=== PATIENT | female | born 1980 | race Two or more races ===

== ENCOUNTER 2020-05-26 14:53 | Emergency (ER) | payer BC ==
[~2020-05-26] VITALS: Ht 165.1 cm; Wt 75.0 kg
[2020-05-26 16:26] LABS: PROTHROMBIN TIME PATIENT 12.9 SEC (11.7-14.0)
[2020-05-26 16:39] LABS: BILIRUBIN,URINE NEGATIVE (NEG); CLARITY,URINE CLOUDY; COLOR,URINE YELLOW; NITRITE,URINE NEGATIVE (NEG); PH,URINE 5.5 (<5.0-8.0); PROTEIN,URINE NEGATIVE (NEG-TRACE); UROBILINOGEN,URINE 0.2 mg/dL (0.2 mg/dL)
[2020-05-26 16:48] LABS: BACTERIA,URINE MANY /HPF (0-FEW); RBC,URINE OCC /HPF (0-2); SQUAMOUS EPITHELIAL CELL,UR MANY /LPF
[2020-05-26 16:48] LABS: CREATINE KINASE 63 U/L (26-192)
--- NOTE | 2020-05-26 16:58 | RAD ---
CHEST AP ONLY History: Reason: PUI, CHEST PAINS / Spl. Instructions: / History: Comparison: None. Findings: No consolidation or pleural effusion. Normal heart size. No pneumothorax. Impression: 1. No acute cardiopulmonary process. Electronically signed by: Carlos Ramirez DO (05/26/2020 4:56 PM) [facility] [place]
[2020-05-26 20:02] LABS: BASO # 0.1 x10^3/uL (0.0-0.2); BASO % 1 % (0-3); EOS # 0.1 x10^3/uL (0.0-0.7); EOS % 2 % (0-3); HEMOGLOBIN 13.2 g/dL (12.0-15.5); LYMPH # 2.2 x10^3/uL (1.0-4.8); LYMPH % 24 % (24-48); MEAN CORPUSCULAR HEMOGLOBIN 30 pg (25-35); MEAN CORPUSCULAR HGB CONC 34 g/dL (31-37); MEAN CORPUSCULAR VOLUME 88 fL (79-100); MONO # 0.5 x10^3/uL (0.0-1.1); MONO % 6 % (0-9); NEUT # 6.1 x10^3/uL (1.8-7.7); NEUT % 68 % (31-73); PLATELET COUNT 252 x10^3/uL (140-400); RED BLOOD COUNT 4.45 x10^6/uL (3.50-5.40); RED CELL DISTRIBUTION WIDTH 13.3 % (11.5-14.5)
[2020-05-26 20:13] LABS: CALCIUM 8.8 mg/dL (8.5-10.1); CREATININE 0.9 mg/dL (0.6-1.0); GFR 70.5; POTASSIUM 3.4 mmol/L (3.5-5.1)
[2020-05-26 20:19] LABS: ALBUMIN 3.5 g/dL (3.4-5.0); ALBUMIN/GLOBULIN RATIO 0.9 (1.0-1.7); TOTAL BILIRUBIN 0.3 mg/dL (0.2-1.0); TOTAL PROTEIN 7.4 g/dL (6.4-8.2)
[2020-05-26] MEDS ORDERED: IOHEXOL 300 MG/ML 100ML VIAL. IV ONE (20:30)
[2020-05-26] MEDS ORDERED: CONTRAST GIVEN. MC PRN (20:45)
--- NOTE | 2020-05-26 21:37 | RAD ---
EXAM: CT Abdomen and Pelvis with IV contrast CLINICAL HISTORY: Reason: LOW ABDOMEN PAIN / Spl. Instructions: [id number] 75ML / History: . COMPARISON: none TECHNIQUE: Helical CT of the abdomen and pelvis was performed following the administration of IV contrast. Axial, coronal and sagittal reformatted images were generated. ---PQRS compliance statement - One or more of the following individualized dose reduction techniques were utilized for this study: 1. Automated exposure control 2. Adjustment of the mA and/or kV according to patient size 3. Use of iterative reconstruction technique--- FINDINGS: Lower chest: Mild dependent opacities in the lower lobes of the lungs represent atelectasis, although developing atypical infectious or inflammatory process is not excluded. Abdomen and pelvis: Liver and biliary system: Focal low-attenuation along the falciform ligament likely focal fatty infiltration. Gallbladder is normal. No biliary ductal dilatation. Spleen: Unremarkable Pancreas: Unremarkable Adrenal glands: Unremarkable Kidneys: Symmetric nephrograms. No focal renal lesion. No hydronephrosis. No hydroureter. Lymph nodes/retroperitoneum: No abdominal or pelvic lymphadenopathy. Vessels: Aorta is normal in caliber. Bowel/Peritoneal cavity: Moderate colonic stool content is seen. No small or large bowel dilatation. No bowel obstruction. Appendix is normal. No abdominal or pelvic ascites. Abdominal wall: Small fat-containing periumbilical hernia is seen. Bladder: Only partially distended but otherwise unremarkable. Bones: No aggressive osseous lesion is seen. IMPRESSION: 1. Moderate colonic stool content. No bowel obstruction. 2. Appendix is normal. 3. Gallbladder is normal. No biliary ductal dilatation. 4. Partially distended bladder is unremarkable. Electronically signed by: Jose Wallace MD (05/26/2020 9:34 PM) [facility]
[2020-05-26] MEDS ORDERED: IV NORMAL SALINE 1000ML BAG 1,000 ML IV ONE (21:45)
[2020-05-26] MEDS ORDERED: KETOROLAC 30 MG/ML VIAL. IVP ONE (21:45)
[2020-05-26] MEDS ORDERED: fentaNYL PF VIAL 100 MCG/2 ML VIAL IVP ONE (21:45)
--- NOTE | 2020-05-26 22:41 | PHYS DOC ---
Past Medical History Past Medical History: TB Additional Past Medical Histor: TB 2016 COMPLETED TREATMENT Past Surgical History: No Surgical History Smoking Status: Never Smoker Alcohol Use: Occasionally General Adult EDM: Chief Complaint: COUGH HPI: HPI: Patient is a 39 year old low abdomen pain for the past 15 days. Patient speaks Bengali, facility perfume compounder service used for HPI. Patient states that she has had a cough with shortness of breath chest pain abdominal pain. Patient denies any vaginal discharge, patient denies any urinary problems, patient denies any STI concerns. Patient states that she had a normal bowel movement yesterday. Patient is not concerned for constipation. Patient denies any fever or chills at home, although she fears that she has a COVID 19 virus and would like to be tested today. Patient states that she and her family were tested 2 weeks ago and it was negative. Patient also states that she has nasal congestion. Patient denies any visual changes. Patient denies any back pain or pain in her joints or skin rashes. Denies any swelling of her glands. Denies depression or anxiety. Review of Systems: Review of Systems: Constitutional: Denies fever or chills. Eyes: Denies change in visual acuity. HENT: Complains of nasal congestion denies sore throat Respiratory: Complains of a cough with shortness of breath. Cardiovascular: Complains of generalized chest pain, denies swelling of her extremities GI: Denies abdominal pain, denies nausea vomiting diarrhea or constipation. : Denies dysuria. Denies vaginal discharge, denies STI concerns. Musculoskeletal: Denies back pain or joint pain. Integument: Denies rash. Neurologic: Denies headache, focal weakness or sensory changes. Lymphatic: Denies swollen glands. Psychiatric: Denies depression or anxiety. Heart Score: HEART Score for Chest Pain: HEART Score for Chest Pain Response (Comments) Value History Slighlty/Non-Suspicious 0 ECG Normal 0 Age < 45 0 Risk Factors No Risk Factors 0 Troponin < Normal Limit 0 Total 0 Risk Factors: Risk Factors: DM, Current or recent (<one month) smoker, HTN, HLP, family history of CAD, obesity. Risk Scores: Score 0 - 3: 2.5% MACE over next 6 weeks - Discharge Home Score 4 - 6: 20.3% MACE over next 6 weeks - Admit for Clinical Observation Score 7 - 10: 72.7% MACE over next 6 weeks - Early Invasive Strategies Current Medications: Current Medications Medications (Trade) Dose Ordered Sig/Lynnette Start Time Stop Time Status Last Admin Dose Admin Fentanyl Citrate (Fentanyl 2ml Vial) 50 mcg 1X ONCE 05/26/20 21:45 05/26/20 21:46 DC 05/26/20 22:07 50 MCG Info (CONTRAST GIVEN -- Rx MONITORING) 1 each PRN DAILY PRN 05/26/20 20:45 05/28/20 20:44 Iohexol (Omnipaque 300 Mg/ml) 75 ml 1X ONCE 05/26/20 20:30 05/26/20 20:33 DC 05/26/20 20:30 75 ML Ketorolac Tromethamine (Toradol 30mg Vial) 30 mg 1X ONCE 05/26/20 21:45 05/26/20 21:46 DC 05/26/20 22:07 30 MG Sodium Chloride 1,000 ml @ 1,000 mls/hr 1X ONCE 05/26/20 21:45 05/26/20 22:44 05/26/20 22:08 1,000 MLS/HR Allergies: Allergies: Allergies Coded Allergies Type Severity Reaction Last Updated Verified No Known Drug Allergies 05/26/20 No Physical Exam: PE: Constitutional: Well developed, well nourished, no acute distress, non-toxic appearance. [] HENT: Normocephalic, atraumatic, bilateral external ears normal, oropharynx moist, no oral exudates, nose normal. [] Eyes: PERRLA, EOMI, conjunctiva normal, no discharge. [] Neck: Normal range of motion, no tenderness, supple, no stridor. [] Cardiovascular:Heart rate regular rhythm, no murmur [] Lungs & Thorax: Bilateral breath sounds clear to auscultation [] Abdomen: Bowel sounds normal, soft, no tenderness, no masses, no pulsatile masses. [] Skin: Warm, dry, no erythema, no rash. [] Back: No tenderness, no CVA tenderness. [] Extremities: No tenderness, no cyanosis, no clubbing, ROM intact, no edema. [] Neurologic: Alert and oriented X 3, normal motor function, normal sensory function, no focal deficits noted. [] Psychologic: Affect normal, judgement normal, mood normal. [] Current Patient Data: Labs: Laboratory Tests Test 05/26/20 15:55 05/26/20 16:30 05/26/20 16:35 White Blood Count 9.0 x10^3/uL (4.0-11.0) Red Blood Count 4.45 x10^6/uL (3.50-5.40) Hemoglobin 13.2 g/dL (12.0-15.5) Hematocrit 39.0 % (36.0-47.0) Mean Corpuscular Volume 88 fL (79-100) Mean Corpuscular Hemoglobin 30 pg (25-35) Mean Corpuscular Hemoglobin Concent 34 g/dL (31-37) Red Cell Distribution Width 13.3 % (11.5-14.5) Platelet Count 252 x10^3/uL (140-400) Neutrophils (%) (Auto) 68 % (31-73) Lymphocytes (%) (Auto) 24 % (24-48) Monocytes (%) (Auto) 6 % (0-9) Eosinophils (%) (Auto) 2 % (0-3) Basophils (%) (Auto) 1 % (0-3) Neutrophils # (Auto) 6.1 x10^3/uL (1.8-7.7) Lymphocytes # (Auto) 2.2 x10^3/uL (1.0-4.8) Monocytes # (Auto) 0.5 x10^3/uL (0.0-1.1) Eosinophils # (Auto) 0.1 x10^3/uL (0.0-0.7) Basophils # (Auto) 0.1 x10^3/uL (0.0-0.2) Prothrombin Time 12.9 SEC (11.7-14.0) Prothrombin Time INR 1.0 (0.8-1.1) Activated Partial Thromboplast Time 28 SEC (24-38) Sodium Level 140 mmol/L (136-145) Potassium Level 3.4 mmol/L (3.5-5.1) L Chloride Level 105 mmol/L (98-107) Carbon Dioxide Level 27 mmol/L (21-32) Anion Gap 8 (6-14) Blood Urea Nitrogen 8 mg/dL (7-20) Creatinine 0.9 mg/dL (0.6-1.0) Estimated GFR (Cockcroft-Gault) 70.5 BUN/Creatinine Ratio 9 (6-20) Glucose Level 114 mg/dL (70-99) H Calcium Level 8.8 mg/dL (8.5-10.1) Magnesium Level 2.1 mg/dL (1.8-2.4) Total Bilirubin 0.3 mg/dL (0.2-1.0) Aspartate Amino Transferase (AST) 20 U/L (15-37) Alanine Aminotransferase (ALT) 27 U/L (14-59) Alkaline Phosphatase 85 U/L (46-116) Creatine Kinase 63 U/L (26-192) Creatine Kinase MB (Mass) < 5.0 ng/mL (0.0-3.6) H Creatine Kinase MB Relative Index % (0-4) Troponin I Quantitative < 0.017 ng/mL (0.000-0.055) Total Protein 7.4 g/dL (6.4-8.2) Albumin 3.5 g/dL (3.4-5.0) Albumin/Globulin Ratio 0.9 (1.0-1.7) L Urine Collection Type Unknown Urine Color Yellow Urine Clarity Cloudy Urine pH 5.5 (<5.0-8.0) Urine Specific Adrian 1.025 (1.000-1.030) Urine Protein Negative mg/dL (NEG-TRACE) Urine Glucose (UA) Negative mg/dL (NEG) Urine Ketones (Stick) Negative mg/dL (NEG) Urine Blood Negative (NEG) Urine Nitrite Negative (NEG) Urine Bilirubin Negative (NEG) Urine Urobilinogen Dipstick 0.2 mg/dL (0.2 mg/dL) Urine Leukocyte Esterase Negative (NEG) Urine RBC Occ /HPF (0-2) Urine WBC 1-4 /HPF (0-4) Urine Squamous Epithelial Cells Many /LPF Urine Bacteria Many /HPF (0-FEW) Urine Mucus Marked /LPF POC Urine HCG, Qualitative Hcg negative (Negative) Laboratory Tests 05/26/20 15:55 Laboratory Tests 05/26/20 15:55 Vital Signs: Vital Signs Date Time Temp Pulse Resp B/P (MAP) Pulse Ox O2 Delivery O2 Flow Rate FiO2 05/26/20 22:07 100 05/26/20 18:00 90 Room Air 05/26/20 16:00 112/72 (85) 05/26/20 15:24 98.8 18 98.8 EKG: EKG: EKG performed at 1708 showsnormal sinus rhythm without ectopy, reviewed by ED attending Dr. Bo, no STEMI noted no ACS concerns. [] Radiology/Procedures: Radiology/Procedures: EXAM: CT Abdomen and Pelvis with IV contrast CLINICAL HISTORY: Reason: LOW ABDOMEN PAIN / Spl. Instructions: [id number] 75ML / History: . COMPARISON: none TECHNIQUE: Helical CT of the abdomen and pelvis was performed following the administration of IV contrast. Axial, coronal and sagittal reformatted images were generated. ---PQRS compliance statement - One or more of the following individualized dose reduction techniques were utilized for this study: 1. Automated exposure control 2. Adjustment of the mA and/or kV according to patient size 3. Use of iterative reconstruction technique--- FINDINGS: Lower chest: Mild dependent opacities in the lower lobes of the lungs represent atelectasis, although developing atypical infectious or inflammatory process is not excluded. Abdomen and pelvis: Liver and biliary system: Focal low-attenuation along the falciform ligament likely focal fatty infiltration. Gallbladder is normal. No biliary ductal dilatation. Spleen: Unremarkable Pancreas: Unremarkable Adrenal glands: Unremarkable Kidneys: Symmetric nephrograms. No focal renal lesion. No hydronephrosis. No hydroureter. Lymph nodes/retroperitoneum: No abdominal or pelvic lymphadenopathy. Vessels: Aorta is normal in caliber. Bowel/Peritoneal cavity: Moderate colonic stool content is seen. No small or large bowel dilatation. No bowel obstruction. Appendix is normal. No abdominal or pelvic ascites. Abdominal wall: Small fat-containing periumbilical hernia is seen. Bladder: Only partially distended but otherwise unremarkable. Bones: No aggressive osseous lesion is seen. IMPRESSION: 1. Moderate colonic stool content. No bowel obstruction. 2. Appendix is normal. 3. Gallbladder is normal. No biliary ductal dilatation. 4. Partially distended bladder is unremarkable. Electronically signed by: Jose Rivera MD (05/26/2020 9:34 PM) [facility] DICTATED and SIGNED BY: JOSE RIVERA MD DATE: 05/26/202133 PROCEDURE: CHEST AP ONLY CHEST AP ONLY History: Reason: PUI, CHEST PAINS / Spl. Instructions: / History: Comparison: None. Findings: No consolidation or pleural effusion. Normal heart size. No pneumothorax. Impression: 1. No acute cardiopulmonary process. Electronically signed by: Carlos Ramirez DO (05/26/2020 4:56 PM) [facility] DICTATED and SIGNED BY: CARLOS RAMIREZ DO DATE: 05/26/20 097 Course & Med Decision Making: Course & Med Decision Making Pertinent Labs and Imaging studies reviewed. (See chart for details) 39-year-old patient speaks Bengali, used facility translation service phone for physical exam and discharge instructions with patient. Vital signs reviewed imaging was ordered labs were ordered, chest x-ray and CT abdomen pelvis and EKG were non-concerning of acute cardiac process, no ACS concerns, no acute infectious process noted, CT showed concerns for constipation. Physical exam was non-concerning for acute process, patient was given IV pain medicines which brought her pain from a 10/10 to no pain. Discussed with patient diagnosis of constipation, patient was given mag citrate to treat constipation. Patient had no other questions or concerns, patient discharged to home. Dragon Disclaimer: Dragon Disclaimer: This electronic medical record was generated, in whole or in part, using a voice recognition dictation system. Departure Departure Impression: Primary Impression: Constipation Qualified Codes: K59.00 - Constipation, unspecified Disposition: HOME, SELF-CARE Condition: GOOD Referrals: NO PCP (PCP) Patient Instructions: Constipation, Adult Additional Instructions: Take prescriptions as directed, follow-up with your doctor soon, return to the emergency department for worsening symptoms, or further concerns. Scripts Magnesium Citrate (MAGNESIUM CITRATE) 296 Ml Solution 296 ML PO ONCE, #296 ML 0 Refills Prov: JUANCARLOS COLES APRN 05/26/20 Justicifation of Admission Dx: Justifications for Admission: Justification of Admission Dx: N/A JUANCARLOS COLES APRN May 26, 2020 22:41
[2020-05-26] MEDS ORDERED: MAGN296S68 PO (22:49)
[2020-05-26 23:00] VITALS: BP 125/88
[2020-05-26] MEDS ORDERED: MAGNESIUM CITRATE 296 ML SOLUTION. PO ONE (23:00)
--- NOTE | 2020-05-27 03:26 | EKG ---
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
== END 2020-05-26 23:20 | disposition home or self-care (01) ==
LOC: ER 14:53
DX: K59.00 Constipation, unspecified (principal); Z20.828 Contact with and (suspected) exposure to other viral communicable diseases; R06.02 Shortness of breath; R07.89 Other chest pain; R05 Cough; A15.8 Other respiratory tuberculosis; Z79.899 Other long term (current) drug therapy
CPT/HCPCS: 36415; 71045; 74177; 80053; 81001; 81025; 82553; 83735; 84484; 85025; 85610; 85730; 87070; 87086; 87880; 93005; 96374; 96375; 99285; J1885; J3010; J7030; Q9967; U0003

== ENCOUNTER 2020-06-03 13:24 | Emergency (ER) | payer BC ==
[~2020-06-03] VITALS: Ht 152.4 cm; Wt 67.0 kg
[~2020-06-03 13:24] MED LIST: MAGN296S68 PO
--- NOTE | 2020-06-03 14:13 | PHYS DOC ---
Past Medical History Past Medical History: Unknown Additional Past Medical Histor: TB 2016 COMPLETED TREATMENT Past Surgical History: No Surgical History Smoking Status: Never Smoker Alcohol Use: None General Adult EDM: Chief Complaint: COUGH HPI: HPI: The history was obtained from the patient. Patient is a 39-year-old female with no reported PMH who presents with a chief complaint of cough. Patient states she has had a cough for the past several days. She notes generalized weakness. She does note a mild sore throat. States that her boyfriend is sick with similar symptoms at home. She states they recently moved from [facility] [place]. She notes that she was tested for coronavirus earlier today and told her results were negative. She denies any chest pain. She does note some shortness of breath only when she coughs. Denies any objective fevers. Has not tried any medicine at home to help with her symptoms. States he has been eating and drinking well otherwise. Denies neck pain or stiffness. No other complaints. Review of Systems: Review of Systems: Constitutional: Positive for fatigue and chills Eyes: Denies change in visual acuity. [] HENT: Positive for sore throat Respiratory: Positive for shortness of breat and cough Cardiovascular: Denies chest pain or edema. [] GI: Denies abdominal pain, nausea, vomiting, bloody stools or diarrhea. [] : Denies dysuria. [] Musculoskeletal: Denies back pain or joint pain. [] Integument: Denies rash. [] Neurologic: Denies headache, focal weakness or sensory changes. [] Endocrine: Denies polyuria or polydipsia. [] Lymphatic: Denies swollen glands. [] Psychiatric: Denies depression or anxiety. [] Heart Score: Risk Factors: Risk Factors: DM, Current or recent (<one month) smoker, HTN, HLP, family history of CAD, obesity. Risk Scores: Score 0 - 3: 2.5% MACE over next 6 weeks - Discharge Home Score 4 - 6: 20.3% MACE over next 6 weeks - Admit for Clinical Observation Score 7 - 10: 72.7% MACE over next 6 weeks - Early Invasive Strategies Current Medications: Current Medications Medications (Trade) Dose Ordered Sig/Lynnette Start Time Stop Time Status Last Admin Dose Admin Acetaminophen (Tylenol) 1,000 mg 1X ONCE 06/03/20 14:15 06/03/20 14:16 Benzonatate (Tessalon Perle) 100 mg 1X ONCE 06/03/20 14:15 06/03/20 14:16 Allergies: Allergies: Allergies Coded Allergies Type Severity Reaction Last Updated Verified No Known Drug Allergies 05/26/20 No Physical Exam: PE: Constitutional: Well developed, well nourished, no acute distress, non-toxic appearance. [] HENT: Normocephalic, atraumatic, bilateral external ears normal, oropharynx moist, no oral exudates, nose normal. [] Eyes: PERRLA, EOMI, conjunctiva normal, no discharge. [] Neck: Normal range of motion, no tenderness, supple, no stridor. [] Cardiovascular:Heart rate regular rhythm, no murmur [] Lungs & Thorax: Bilateral breath sounds clear to auscultation [] Abdomen: soft, no tenderness, no masses, no pulsatile masses. [] Skin: Warm, dry, no erythema, no rash. [] Back: No tenderness, no CVA tenderness. [] Extremities: No tenderness, no cyanosis, no clubbing, ROM intact, no edema. [] Neurologic: Alert and oriented X 3, normal motor function, normal sensory function, no focal deficits noted. [] Psychologic: Affect normal, judgement normal, mood normal. [] Current Patient Data: Vital Signs: Vital Signs Date Time Temp Pulse Resp B/P (MAP) Pulse Ox O2 Delivery O2 Flow Rate FiO2 06/03/20 13:56 98.8 92 138/82 (100) 100 Room Air 98.8 EKG: EKG: [] Radiology/Procedures: Radiology/Procedures: [] Course & Med Decision Making: Course & Med Decision Making Pertinent Labs and Imaging studies reviewed. (See chart for details) Patient is a nontoxic-appearing 39-year-old female presents with a complaint of cough, body aches, and sore throat. Chest x-ray nonacute. I do not feel laboratory analysis will yield further diagnostic information. Given she was just tested for coronavirus earlier today and was told she was negative I do not feel this needs to be repeated. I am suspicious that this could be false negative though given her symptoms and that she just moved here from [facility]. Supportive care measures were discussed. Patient is agreeable to discharge home. Return precautions were discussed and understood. She was given referral to primary care physicians. Stable for discharge home. COVID-19 CRITERIA: The patient was evaluated during the global COVID-19 pandemic, and that diagnosis was suspected/considered upon their initial presentation. Their evaluation, treatment and testing was consistent with cur rent guidelines for patients who present with complaints or symptoms that may be related to COVID-19. Scarlett Disclaimer: Scarlett Disclaimer: This electronic medical record was generated, in whole or in part, using a voice recognition dictation system. Departure Departure Impression: Primary Impression: Cough Additional Impressions: Body aches Suspected COVID-19 virus infection Disposition: 01 HOME, SELF-CARE Condition: GOOD Referrals: NO PCP (PCP) Additional Instructions: [facility] [address] [place] [address] [facility] [address] [place] [address] [facility] [address] [facility] [place] [address] [facility] [address] [place] [address] [facility] [address] [place] [address] [facility] [address] [place] [address] [facility] [address] [place] [address] [facility] [address] [place] [address] [facility] [address] [place] [address] [facility] [address] [place] [address] You have been tested for or diagnosed with COVID-19. It is an infection caused by a new type of coronavirus. COVID-19 will cause cold-like or mild flu symptoms in most. It can cause more severe symptoms like problems breathing in some. There is no treatment for COVID-19. The body will clear the infection over time. Self-care will help to ease discomfort. Steps to Take: Self-Care Rest as needed. Healthy habits may help you feel better. Steps include: Choose healthy foods including fruits and vegetables. Drink water throughout the day. Get plenty of sleep each night. If you smoke, try to quit. It may ease breathing. Avoid alcohol. Keep Others Healthy The virus can spread to others. Droplets are released every time you sneeze or cough. The droplets can get into the mouth, nose, or eyes of people near you and lead to infection. To lower the chances of spreading COVID-19 to others: Stay at home until your doctor has said it is safe to leave. If you tested positive this will mean staying isolated until both of the following are true: At least 7 days have passed since the start of illness. You are free of fever for at least 72 hours without the use of medicine. During this time: - Avoid public areas, events, or transportation. Do not return to work or school until your doctor has said it is safe to do so. - Call ahead if you need to go to a medical center. Let them know you may have COVID-19. It will help them guide you where to go. They may also ask you to wear a facemask when you come to the office. - If you call for emergency medical services, let them know you may have COVID- 19. While at home: - Try to avoid close contact with others. Stay about 6 feet away. - If possible, spend most of your time in a separate room from others. - Use a face mask if you will be in close contact with others such as sharing a room or vehicle. - Have someone wipe down common surfaces in the home. Use household food checkers and cashiers supervisor every day on areas like doorknobs, counters, or sinks. - Cough or sneeze into a tissue. Throw the tissue away right after use. If a tissue is not available, cough or sneeze into your elbow. - Wash your hands often. Wash them after sneezing or coughing. Use soap and water and wash for at least 20 seconds. Alcohol based hand cesspool cleaner can be used if soap and water is not available. - Do not prepare food for others. Avoid sharing personal items like forks, spoons, or toothbrushes. - Avoid close contact with pets while you are sick. There is no evidence of the virus passing to pets. This is a safety step until more is known about this virus. Isolation can be frustrating. Social interaction can help. Keep in touch with friends and family through phone and tech options. You can still interact with others in your home, just keep a safe distance of about 6 feet. Follow-up: Your doctors office will check in with you to see if there are any changes in your health. You may be asked to keep track of symptoms to share with them. They will also let you know when you are clear to be in public again. Problems to Look Out For: Contact your doctor if your recovery is not going as you expect. Get emergency care if you have problems such as: - Trouble breathing - Nonstop chest pain or pressure - Changes in awareness, confusion, or problems waking - Lips or face have bluish color - Worsening of symptoms If you think you have an emergency, call for emergency medical services right away. As taken from [facility] Justicifation of Admission Dx: Justifications for Admission: Justification of Admission Dx: N/A LIZZIE JOSUE DO Jun 03, 2020 14:13
[2020-06-03] MEDS: ACETAMINOPHEN 500 MG TABLET PO ONE (14:14)
[2020-06-03] MEDS: BENZONATATE 100 MG CAPSULE. PO ONE (14:14)
--- NOTE | 2020-06-03 14:49 | RAD ---
CHEST AP ONLY History: Cough Comparison: May 26, 2020 Findings: Single view of the chest is submitted. There is a lesser degree of inspiration for this exam. There is appearance of some increased opacity of the medial lung bases bilaterally, otherwise no other air space opacity. There is no dependent pleural fluid or pneumothorax. Heart size is within normal limits. Impression: 1. There is likely some increased medial bibasilar airspace opacity although may be atelectasis rather than infiltrate given suboptimal inspiration. Electronically signed by: Donavan Malave MD (06/03/2020 2:46 PM) [id number]
[2020-06-03 16:00] VITALS: BP 116/70
== END 2020-06-03 16:13 | disposition home or self-care (01) ==
LOC: ER 13:24
DX: R05 Cough (principal); Z20.828 Contact with and (suspected) exposure to other viral communicable diseases; J02.9 Acute pharyngitis, unspecified; R53.1 Weakness
CPT/HCPCS: 71045; 99285